=== PATIENT | male | born 1995 | race Caucasian/White ===

== ENCOUNTER 2024-12-27 22:55 | Outpatient (BNV) | payer MEDICAID, SELFPAY | END 2024-12-30 18:25 | PROVIDERS: Admitting Provider Psychiatry & Neurology Psychiatry; Visit Provider Radiology Diagnostic Radiology | DX: J34.89 Other specified disorders of nose and nasal sinuses (principal) | CPT/HCPCS: 70160 ==

== ENCOUNTER 2024-12-27 22:55 | Inpatient (IN) | payer MEDICAID, OTHER, SELFPAY ==
--- NOTE | ~2024-12-27 | XR_ITS ---
CLINICAL HISTORY: Nasal pain s p facial trauma 3 views nasal bones Comparison: None Findings: No fractures or dislocations. No radiopaque foreign bodies. The visualized sinuses and mastoids are clear. IMPRESSION: Normal nasal bones This document has been electronically signed by: Conner Dubose MD on 12/30/2024 18:36:20
[2024-12-27 23:15] VITALS: BP 128/64; PULSE 72; RESP 16; TEMP 36.9; O2SAT 97; BMI 21.3
[2024-12-28] MEDS: traZODone HCL 50 MG TABLET PO ×2 (00:04→22:25)
[2024-12-28] MEDS: hydrOXYzine HCL 25 MG TABLET PO ×2 (00:04→08:57)
[2024-12-28] MEDS: Nicotine Polacrilex 2 MG GUM 4 MG BUCCAL ×2 (00:08→20:01)
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
--- NOTE | 2024-12-28 02:52 | PC.NURSE ---
This nurse did a CIWA assessment on the patient when he told him that he drank alcohol daily. Patient was only home for 3 days from being discharged from a hospital in [place], [place] to when he was in the ER at [facility]. Patient scored a 2 on the assessment for anxiety. There were no physical signs observed that he was going through any alcohol withdrawal at this time. Will pass on to day staff to observe patient to see if a CIWA protocol is needed.
[2024-12-28 08:00] VITALS: BP 117/64; PULSE 75; RESP 16; TEMP 36.6; O2SAT 99
[2024-12-28] MEDS: Flu Vacc TS2024-25(6mos up)/PF 0.5 ML SYRINGE IM (08:54)
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
[2024-12-28 09:03] LABS: Cholesterol 120 mg/dL (<200); HDL Cholesterol 51 mg/dL (>40); LDL Cholesterol Calculated 54 mg/dL (<100); Triglycerides 76 mg/dL (<150)
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
[2024-12-28 09:17] LABS: Estimated Average Glucose 111 mg/dL; Hemoglobin A1c % 5.5 % (<6.0)
[2024-12-28 09:21] LABS: Thyroid Stimulating Hormone 1.03 uIU/mL (0.32-4.0)
[2024-12-28 09:30] LABS: Folate 7.9 ng/mL (> or = 4.0); Vitamin B12 580 pg/mL (200-900)
[2024-12-28] MEDS: Nicotine 21 MG PATCH.TD24 TRANSDERMA (10:01)
[2024-12-28] MEDS: cephALEXin 500 MG CAPSULE PO ×3 (11:34→22:25)
[2024-12-28 12:55] VITALS: BP 137/65; PULSE 86
[2024-12-28] MEDS: LORazepam 1 MG TABLET PO (12:58)
[2024-12-28] MEDS: Divalproex Sodium 500 MG TABLET.DR PO (14:20)
[2024-12-28] MEDS: ARIPiprazole 5 MG TABLET PO ×2 (14:20→19:59)
--- NOTE | 2024-12-28 15:47 | MHC.RECOVRN ---
Received Addiction Medicine consult for recovery support. Chart reviewed. Awaiting provider documentation. Will see pt 12/29. Kami Newton APRN, aware.
[2024-12-28 16:26] VITALS: BP 112/71; PULSE 94
[2024-12-28] MEDS: Divalproex Sodium ER 500 MG TAB.ER.24H 1000 MG PO (19:58)
[2024-12-28 20:00] VITALS: BP 114/60; PULSE 84; RESP 16; TEMP 36.7; O2SAT 96
[2024-12-29] MEDS: cephALEXin 500 MG CAPSULE PO ×4 (05:22→22:13)
[2024-12-29 08:31] VITALS: BP 126/73; PULSE 91; RESP 16; TEMP 36.8; O2SAT 99
[2024-12-29] MEDS: Nicotine 21 MG PATCH.TD24 TRANSDERMA (08:33)
[2024-12-29] MEDS: ARIPiprazole 5 MG TABLET PO ×2 (08:33→20:04)
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
[2024-12-29] MEDS: Nicotine Polacrilex 2 MG GUM 4 MG BUCCAL (14:30)
[2024-12-29 19:29] VITALS: BP 127/59; PULSE 105; RESP 16; TEMP 36.1; O2SAT 99
[2024-12-29] MEDS: Divalproex Sodium ER 500 MG TAB.ER.24H 1000 MG PO (20:04)
[2024-12-29] MEDS: traZODone HCL 50 MG TABLET PO (22:13)
[2024-12-30] MEDS: cephALEXin 500 MG CAPSULE PO ×4 (06:00→22:00)
[2024-12-30] MEDS: hydrOXYzine HCL 25 MG TABLET PO (07:11)
[2024-12-30 07:20] VITALS: BP 107/60; PULSE 65; RESP 16; TEMP 36.4; O2SAT 99
[2024-12-30] MEDS: ARIPiprazole 5 MG TABLET PO ×2 (08:23→22:00)
--- NOTE | 2024-12-30 10:08 | MHC.RECOVRN ---
Pt provided with stimulant and alcohol use disorder resources as well as t/w contact information if needed. RN aware.
[2024-12-30] MEDS: Nicotine 21 MG PATCH.TD24 TRANSDERMA (10:15)
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
[2024-12-30 13:03] VITALS: BMI 21.3
[2024-12-30] MEDS: Nicotine Polacrilex 2 MG GUM 4 MG BUCCAL (14:37)
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
[2024-12-30 19:10] VITALS: BP 133/60; PULSE 100; RESP 16; TEMP 36.3; O2SAT 97
[2024-12-30] MEDS: Divalproex Sodium ER 500 MG TAB.ER.24H 1000 MG PO (22:00)
[2024-12-30] MEDS: traZODone HCL 50 MG TABLET PO (22:00)
[2024-12-31] MEDS: cephALEXin 500 MG CAPSULE PO (06:26)
[2024-12-31] MEDS: Nicotine Polacrilex 2 MG GUM 4 MG BUCCAL (06:47)
[2024-12-31 07:20] VITALS: BP 116/63; PULSE 87; RESP 16; TEMP 36.4; O2SAT 99
[2024-12-31] MEDS: Nicotine 21 MG PATCH.TD24 TRANSDERMA (07:46)
[2024-12-31] MEDS: ARIPiprazole 5 MG TABLET PO (08:28)
== END 2024-12-31 10:40 | disposition home or self-care (01) | DRG 750 ==
PROVIDERS: Admitting Provider Psychiatry & Neurology Psychiatry; Visit Provider Psychiatry & Neurology Psychiatry
DX: F25.0 Schizoaffective disorder, bipolar type (principal); F10.90 Alcohol use, unspecified, uncomplicated; F17.210 Nicotine dependence, cigarettes, uncomplicated; F19.10 Other psychoactive substance abuse, uncomplicated; Z23 Encounter for immunization; Z71.6 Tobacco abuse counseling; S01.312A Laceration without foreign body of left ear, initial encounter; X58.XXXA Exposure to other specified factors, initial encounter; F14.10 Cocaine abuse, uncomplicated; F15.90 Other stimulant use, unspecified, uncomplicated; F12.90 Cannabis use, unspecified, uncomplicated; Z59.01 Sheltered homelessness; Z79.899 Other long term (current) drug therapy
CPT/HCPCS: 36415; 70160; 80061; 82607; 82746; 83036; 84439; 84443; 90656; S9485

== ENCOUNTER → 2024-12-27 22:55 | Outpatient (BNV) | payer MEDICAID, SELFPAY | PROVIDERS: Admitting Provider Psychiatry & Neurology Psychiatry; Visit Provider Psychiatry & Neurology Psychiatry | DX: F25.0 Schizoaffective disorder, bipolar type (principal); F14.10 Cocaine abuse, uncomplicated; F16.10 Hallucinogen abuse, uncomplicated; F15.90 Other stimulant use, unspecified, uncomplicated; F12.90 Cannabis use, unspecified, uncomplicated; F10.90 Alcohol use, unspecified, uncomplicated | CPT/HCPCS: 90792 ==

== ENCOUNTER → 2024-12-27 22:55 | Outpatient (BNV) | payer SELFPAY | PROVIDERS: Admitting Provider Psychiatry & Neurology Psychiatry; Visit Provider Physician Assistant | DX: Z02.2 Encounter for examination for admission to residential institution (principal) | CPT/HCPCS: 99429; 99499 ==